=== PATIENT | female | born 2000 | race Hispanic/Latino ===

== ENCOUNTER 2019-09-01 19:58 | Emergency (ER) | payer SELFPAY ==
[2019-09-01] MEDS ORDERED: HYDROcodone/Acetaminophen 5/325 mg Tablet ONE (20:37)
[2019-09-01] MEDS ORDERED: Ibuprofen 800 MG TAB ONE (20:38)
[2019-09-01] MEDS ORDERED: Sulfameth/Trimethoprim DS 800-160mg TAB ONE (20:38)
--- NOTE | 2019-09-01 21:12 | ULT ---
LEFT LOWER EXTREMITY VENOUS ULTRASOUND WITH DOPPLER: 09/01/19 HISTORY: Pain. TECHNIQUE: Vasquez scale, color flow, Doppler imaging with spectral waveform analysis in the left lower extremity v enous system. FINDINGS: Enlarged left inguinal lymph nodes are incidentally noted. There is compressibility, presence of flow and augmentation in the common femoral vein, femoral vein, and popliteal vein. Flow in the greater s aphenous vein, profunda vein, and posterior tibial vein. IMPRESSION: 1. No evidence of thrombus in the left lower extremity deep venous system. Left inguinal lymphadenopathy. Skein Bleacher enlarged lymph node measures 3.1 cm. POS: [facility]
== END 2019-09-01 21:59 | disposition home or self-care (01) ==
LOC: ERS 19:58
DX: L03.116 Cellulitis of left lower limb (principal)

== ENCOUNTER 2019-12-04 22:23 | Emergency (ER) | payer OTHER, SELFPAY ==
[2019-12-04] MEDS ORDERED: Naproxen 500 MG TAB ONE (23:22)
== END 2019-12-05 00:45 | disposition home or self-care (01) ==
LOC: ERS 22:23
DX: T22.222A Burn of second degree of left elbow, initial encounter (principal); X19.XXXA Contact with other heat and hot substances, initial encounter
CPT/HCPCS: 99283